=== PATIENT | female | born 1965 | race Caucasian/White ===

== ENCOUNTER 2023-03-06 01:45 | Emergency (ER) | payer MEDICAID, MEDICARE ==
[2023-03-06 14:02] VITALS: BP 134/94
[2023-03-06] MEDS ORDERED: SODIUM CHLORIDE 0.9% 1,000 ML IV STA (14:11)
--- NOTE | 2023-03-06 14:11 | ED Physician Documentation ---
History of Present Illness - Stated complaint Stated Complaint: WITHDRAWAL - Chief complaint Chief Complaint: General - History obtained from History obtained from: Patient - Additonal information Additional information: This is a 57-year-old female who has a past medical history of alcoholism, prior alcoholic cirrhosis/liver failure and continues to drink approximately 1/5 of hard alcohol daily, as well as a "blood clot in my back from the Covid shot," presents at the urging of her daughter because she has left lower back pain. The daughter is very concerned that this could be related to her liver failure and wants her to be evaluated. Patient states she has had back pain for a couple of days, denies any known injury, does have some dysuria urgency and frequency, no hematuria. She has not had a fever or chills, no other abdominal pain, no nausea or vomiting. She did already drink approximately fifth of alcohol today. She denies any history of withdrawal symptoms, no prior alcohol- related seizures. Patient denies any drug use and has not attempted any medication for this issue. She normally receives care and in [place], [place], and is here visiting her daughter. Review of Systems Unable to obtain: Intoxicated (Intoxicated but Conversant and answering questions appropriately.) Constitutional: reports: Reviewed and negative Nose: reports: Reviewed and negative Throat: reports: Reviewed and negative Cardiac: reports: Reviewed and negative Respiratory: reports: Reviewed and negative GI: reports: Reviewed and negative : reports: Dysuria, Frequency Skin: reports: Reviewed and negative Musculoskeletal: reports: Back pain. denies: Neck pain, Extremity pain, Joint pain, Extremity swelling, Joint swelling Neurologic: reports: Reviewed and negative PD PAST MEDICAL HISTORY - Past Medical History Past Medical History: Yes GI: Hepatitis, Cirrhosis Other Past Medical History: alcoholism - Allergies Allergies/Adverse Reactions: Allergies Allergy/AdvReac Type Severity Reaction Status Date / Time No Known Drug Allergies Allergy Verified 03/06/23 13:56 PD ED PE NORMAL - Vitals Vital signs reviewed: Yes - General General: Alert and oriented X 3, No acute distress, Well developed/nourished, Other (smells of alcohol) - HEENT HEENT: Atraumatic, PERRL, EOMI, Ears normal, Moist mucous membranes, Pharynx benign, Other (anicteric) - Neck Neck: Supple, no meningeal sign, No JVD - Cardiac Cardiac: No murmur, No gallop, No rub, Strong equal pulses, Other (tachycardic) - Respiratory Respiratory: No respiratory distress, Clear bilaterally - Abdomen Abdomen: Normal bowel sounds, Soft, Non tender, Non distended - Back Back: No CVA TTP, No spinal TTP, Other (left lower lumbar paravert muscle ttp) - Derm Derm: Normal color, Warm and dry, No rash - Extremities Extremities: No deformity, No tenderness to palpate, Normal ROM s pain, No edema, No calf tenderness / cord - Neuro Neuro: Alert and oriented X 3, No motor deficit, No sensory deficit, Normal speech Eye Opening: Spontaneous Motor: Obeys Commands Verbal: Oriented GCS Score: 15 - Psych Psych: Normal mood, Normal affect Results - Vitals Vitals: Vital Signs - 24 hr 03/06/23 13:53 Temperature 37.0 C Heart Rate 140 H Respiratory 42 H Rate Blood Pressure 134/94 H O2 Saturation 96 Oxygen O2 Source Room air - Labs Labs: Laboratory Tests 03/06/23 03/06/23 14:25 14:25 WBC 8.2 RBC 5.60 H Hgb 17.6 H Hct 52.0 H MCV 92.9 MCH 31.4 H MCHC 33.8 RDW 13.9 Plt Count 285 MPV 9.0 Neut # (Auto) 5.2 Lymph # (Auto) 2.4 [place] # (Auto) 0.5 Eos # (Auto) 0.0 Baso # (Auto) 0.1 Absolute Nucleated RBC 0.00 Nucleated RBC % 0.0 Urine Color YELLOW Urine Clarity CLEAR Urine pH 5.5 Ur Specific [place] 1.025 Urine Protein 100 H Urine Glucose (UA) NEGATIVE Urine Ketones TRACE Urine Occult Blood MODERATE H Urine Nitrite NEGATIVE Urine Bilirubin NEGATIVE Urine Urobilinogen 0.2 (NORMAL) Ur Leukocyte Esterase NEGATIVE Urine RBC 0-5 Urine WBC 0-3 Ur Squamous Epith Cells FEW Squamous Urine Bacteria Few Urine Casts 0-2 Granular Casts Urine Mucus Few Strands Ur Microscopic Review INDICATED Urine Culture Comments NOT INDICATED Urine Opiates Screen NEGATIVE Ur Oxycodone Screen NEGATIVE Urine Methadone Screen NEGATIVE Ur Propoxyphene Screen NEGATIVE Ur Barbiturates Screen NEGATIVE Ur Tricyclics Screen NEGATIVE Ur Phencyclidine Scrn NEGATIVE Ur Amphetamine Screen NEGATIVE U Methamphetamines Scrn NEGATIVE U Benzodiazepines Scrn NEGATIVE Urine Cocaine Screen NEGATIVE U Cannabinoids Screen NEGATIVE PD Medical Decision Making - ED course Complexity details: considered differential, d/w patient ED course: 57-year-old female presented with alcohol use as well as complaining of left flank pain as described in HPI. There is concern for possible kidney stone versus UTI versus pancreatitis or other cause of Her left flank pain. I discussed with patient that I recommended we obtain labs and evaluate also her liver function given her history of alcoholism. I recommended that we give her fluid for her tachycardia and monitor here in the ER. The patient was initially agreeable however after labs were obtained, the patient stated that she wanted to leave. I did discuss the risks of leaving AGAINST MEDICAL ADVICE at this time as I do not have a source of her pain at this time and I am concerned about her heart rate of 140 however the patient is awake alert oriented x3, ambulatory under her own power and competent to make her own medical decisions at this time. I have discussed the risks of leaving its medical advice in discussed the labs and additional evaluation that we are waiting on however the patient states that she would like to go home. I did advise that she can return at any point time if she changes her mind and would like to be evaluated. We also discussed local resources for alcohol abuse which patient is aware of stating that she has gone to rehab multiple times and states that she is aware of community Resources. The patient therefore had her IV removed and left AGAINST MEDICAL ADVICE Ambulating without difficulty out of the ER. Departure - Departure Disposition: 07 Against Medical Advice Clinical Impression: Alcoholism, Tachycardia Condition: Fair Instructions: ED Alcohol Abuse Comments: We strongly recommended that you continue to receive treatment in the ER for you abdominal pain, fast heart rate and alcohol use however you elected to leave the ER against medical advice. We have discussed the risks of leaving without a complete evaluation or treatment for your tachycardia (fast heart rate) and abdominal pain. I cannot say without further evaluation what the cause of your abdominal pain is at this time and you risk increased pain, potential untreated serious infection, pancreatitis, or liver failure among many other potential conditions. At this time you are able to make your own health decisions and have elected to leave but please know that you can return at anytime if you change your mind and want to be evaluated or if you have any new symptoms. Forms: PCP List
[2023-03-06 14:35] LABS: MUDS CUTOFF CONCENTRATIONS CUTOFF CONC BELOW:
[2023-03-06 14:38] LABS: BASOPHILS # (AUTO) 0.1 10^3/uL (0.0-0.1); BASOPHILS % (AUTO) 0.6 %; EOSINOPHILS % (AUTO) 0.4 %; HGB - HEMOGLOBIN 17.6 g/dL (12.0-16.0); LYMPHOCYTES # (AUTO) 2.4 10^3/uL (1.5-3.5); LYMPHOCYTES % (AUTO) 29.5 %; MEAN CORPUSCULAR HEMOGLOBIN 31.4 pg (27.0-31.0); MEAN CORPUSCULAR HGB CONC 33.8 g/dL (32.0-36.0); MEAN CORPUSCULAR VOLUME 92.9 fL (81.0-99.0); MONOCYTES # (AUTO) 0.5 10^3/uL (0.0-1.0); NEUTROPHILS # (AUTO) 5.2 10^3/uL (1.5-6.6); PLT - PLATELET COUNT 285 10^3/uL (130-450); RED CELL DISTRIBUTION WIDTH 13.9 % (12.0-15.0); WHITE BLOOD COUNT 8.2 x10^3/uL (4.8-10.8)
[2023-03-06 14:41] LABS: BILIRUBIN,URINE NEGATIVE (NEGATIVE); GLUCOSE, URINE (UA) NEGATIVE (NEGATIVE); KETONES,URINE (UA) TRACE mg/dL (NEGATIVE); LEUKOCYTE ESTERASE, URINE NEGATIVE (NEGATIVE); NITRITE,URINE NEGATIVE (NEGATIVE); OCCULT BLOOD,URINE MODERATE (NEGATIVE); PH,URINE 5.5 PH (5.0-7.5); PROTEIN,URINE 100 mg/dL (NEGATIVE); UROBILINOGEN,URINE 0.2 (NORMAL) E.U./dL (NORMAL)
[2023-03-06 14:52] LABS: CLARITY,URINE CLEAR (CLEAR); RBC,URINE 0-5 /HPF (0-5); SQUAMOUS EPITHELIAL CELL,UR FEW Squamous (<= Few); WBC,URINE 0-3 /HPF (0-5)
[2023-03-06 14:53] LABS: AMPHETAMINE SCREEN,URINE NEGATIVE (NEGATIVE); BACTERIA,URINE Few /HPF (None Seen); BARBITURATE SCREEN,UR NEGATIVE (NEGATIVE); BENZODIAZEPINES SCREEN, URINE NEGATIVE (NEGATIVE); CASTS, URINE 0-2 Granular Casts /LPF; COCAINE SCREEN URINE NEGATIVE (NEGATIVE); METHADONE SCREEN, URINE NEGATIVE (NEGATIVE); METHAMPHETAMINES SCREEN, URINE NEGATIVE (NEGATIVE); MUCUS,URINE Few Strands; OPIATE SCREEN, URINE NEGATIVE (NEGATIVE); OXYCODONE SCREEN, URINE NEGATIVE (NEGATIVE); PROPOXYPHENE SCREEN, URINE NEGATIVE (NEGATIVE); THC CANNABINOID SCREEN, URINE NEGATIVE (NEGATIVE); TRICYCLIC ANTIDEPRESSANT,URINE NEGATIVE (NEGATIVE)
[2023-03-06 15:11] LABS: ALBUMIN 4.5 g/dL (3.2-5.5); ETOH - ETHANOL 244.9 mg/dL
[2023-03-06 15:15] LABS: ALBUMIN/GLOBULIN RATIO 1.3 (1.0-2.2); BILIRUBIN,TOTAL 0.5 mg/dL (0.2-1.0); CALCIUM 9.4 mg/dL (8.5-10.3); CREATININE 0.7 mg/dL (0.6-1.3); POTASSIUM 3.8 mmol/L (3.5-4.5); TOTAL PROTEIN 7.9 g/dL (6.4-8.9)
== END 2023-03-06 14:57 | disposition left against medical advice (07) ==
LOC: ED 13:33
DX: R00.0 Tachycardia, unspecified (principal); F10.229 Alcohol dependence with intoxication, unspecified; Y90.8 Blood alcohol level of 240 mg/100 ml or more; M54.50 Low back pain, unspecified
CPT/HCPCS: 36415; 80053; 80306; 80320; 81001; 81003; 83690; 85025; 85610; 87086; 99283